=== PATIENT | male | born 1950 ===

== ENCOUNTER → 2023-06-11 08:38 | Outpatient (CLI) | payer MEDICARE, SELFPAY ==
--- NOTE | ~2023-06-11 | MR_ITS ---
EXAMINATION: MR knee RT wo con DATE: 06/11/2023 09:15 INDICATION: Right knee pain TECHNIQUE: Magnetic resonance imaging (MRI) of the right knee was performed without intravenous contr ast. Sequences included coronal PD-weighted FSE, coronal PD-weighted FS FSE, sagittal T2-weighted FS E, sagittal PD-weighted FS FSE and axial PD weighted fat saturated FSE. COMPARISON: None. FINDINGS: Medial compartment: Mild increased intrasubstance signal in the posterior wall of the medial meniscus consistent with muc oid degeneration without discrete tear. Small region of partial-thickness chondral fissuring at the a nteromedial aspect of the medial tibial plateau. Articular cartilage along the weightbearing medial f emoral condyle is normal. Lateral compartment: Lateral meniscus is normal. Deep chondral fissure involving greater than 50% the cartilage thickness but without degenerative subchondral changes at the anterior weightbearing lateral femoral condyle. S mall region of shallow chondral ulceration at the central aspect of the lateral tibial plateau. Addit ional chondral ulceration involving greater than 57 the cartilage thickness along the posterior viviana n of the weightbearing lateral femoral condyle. Patellofemoral compartment: Partial-thickness chondral fissuring at the medial and lateral patellar facets and intervening apical ridge, in place involving greater than 50% the cartilage thickness but without degenerative subchond ral changes. Minimal scattered chondral surface irregularity along the inferior trochlea. Ligaments and tendons: Posterior cruciate ligament is normal. Mucoid degeneration of the anterior cruciate ligament without discrete tear. The medial collateral ligament and fibular collateral ligament complex are normal. Lar ge enthesophytes at the patellar insertion of the distal quadriceps tendon which demonstrates moderat e tendinopathy and small partial-thickness intrasubstance tear at the central portion of the tendon. Mild proximal patellar tendinopathy without tear. The visualized medial and lateral hamstring tendons as well as the iliotibial band are normal. Fluid: Physiologic amount of fluid in the joint space. No loose osteochondral bodies identified. Osseous/other: Normal marrow signal. No fracture or pathologic marrow replacing process. IMPRESSION: 1. 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 2. 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 3. 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 4. Mild proximal patellar tendinopathy. Reviewed, dictated and finalized at location L. IMPRESSION: 1. Mild tricompartmental osteoarthritis with regions of moderate grade chondrom alacia in all 3 compartments most extensive along the patella. 2. 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 3. 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 4. Mild proximal patellar tendinopathy.
== END ==
PROVIDERS: PCP Orthopaedic Surgery
DX: M25.561 Pain in right knee (principal); M17.11 Unilateral primary osteoarthritis, right knee; M94.261 Chondromalacia, right knee; M76.891 Other specified enthesopathies of right lower limb, excluding foot; M76.51 Patellar tendinitis, right knee
CPT/HCPCS: 73721